=== PATIENT | female | born 1955 | race Caucasian/White ===

== ENCOUNTER → 2016-12-19 | Outpatient (CLI) | payer BC ==
[~2016-12-19] MED LIST: ANTIVERT 25MG T25 MG PO; CETIRIZINE HCL10 M1 PO; FIORICET TAB1 EA PO; LOSARTAN POTASS25 MG PO; MOBIC7.5 MG PO; SIMVASTATIN20 MG PO; VITAMIN D1000 UNI1 PO
== END ==
LOC: MAMO 12:34
DX: Z12.31 Encounter for screening mammogram for malignant neoplasm of breast (principal); Z80.3 Family history of malignant neoplasm of breast; Z90.710 Acquired absence of both cervix and uterus
CPT/HCPCS: G0202

== ENCOUNTER → 2020-10-01 | Outpatient (CLI) | payer BC ==
[~2020-10-01] MED LIST changes: +ASPIRIN EC81 MG PO; +NORCO 7.5-3251 EACH PO
== END ==
LOC: KOH-I 12:20
DX: M54.2 Cervicalgia (principal); M54.6 Pain in thoracic spine; R07.81 Pleurodynia; M47.814 Spondylosis without myelopathy or radiculopathy, thoracic region; M47.812 Spondylosis without myelopathy or radiculopathy, cervical region
CPT/HCPCS: 71046; 72050; 72070

== ENCOUNTER → 2021-01-27 | Outpatient (CLI) | payer BC ==
[2021-01-27 09:53] LABS: WBC (AUTOMATED 0 10^3 (0-5)
[2021-01-27 09:54] LABS: RBC (AUTOMATED) 1000 10^6 (0); RBC (AUTOMATED) 200 10^6 (0); WBC (AUTOMATED 0 10^3 (0-5)
[2021-01-27 10:05] LABS: GLUCOSE,CSF 54 mg/dL (50-80); TOTAL PROTEIN,CSF 32 mg/dL (20-45)
== END ==
LOC: RAD 07:51
PROVIDERS: Psychiatry & Neurology Neurology
DX: G93.2 Benign intracranial hypertension (principal); R93.0 Abnormal findings on diagnostic imaging of skull and head, not elsewhere classified
CPT/HCPCS: 36415; 82945; 84157; 85049; 85610; 85730; 87015; 87070; 87116; 87205; 87210; 89051

== ENCOUNTER 2022-03-20 17:30 | Emergency (ER) | payer BC ==
[2022-03-20 21:06] LABS: HEMOGLOBIN 13.8 gm/dl (12.3-15.3); RED BLOOD COUNT 4.75 M/UL (4.00-5.10); WHITE BLOOD COUNT 6.9 K/UL (4.5-11.0)
== END 2022-03-20 23:02 | disposition home or self-care (01) ==
LOC: ER1 17:30
PROVIDERS: Physician Assistant Medical
DX: U07.1 COVID-19 (principal)
CPT/HCPCS: 80053; 81001; 83690; 85025; 99284